=== PATIENT | female | born 1935 | race Caucasian/White ===

== ENCOUNTER → 2017-02-19 | Outpatient (CLI) | payer MEDICARE | END | disposition home or self-care (01) | LOC: GMAB 11:57 | PROVIDERS: ATTEND Family Medicine | DX: I10 Essential (primary) hypertension (principal) ==

== ENCOUNTER → 2017-07-04 | Outpatient (CLI) | payer MEDICARE | END | disposition home or self-care (01) | LOC: RESP 14:05 | PROVIDERS: ATTEND Family Medicine | DX: R06.02 Shortness of breath (principal) ==

== ENCOUNTER 2017-07-13 18:24 | Emergency (ER) | payer MEDICARE ==
--- NOTE | 2017-07-13 18:45 | ED.PDOC ---
History of Present Illness - General Chief Complaint: Lower Extremity Injury Stated Complaint: L hip injury Time Seen by Provider: 07/13/17 18:29 Source: patient, RN notes reviewed, Vital Signs reviewed Exam Limitations: no limitations - History of Present Illness Initial Comments: Patient presents to the ER via private vehicle with c/o left hip pain. She [place] and felt her bone move funny and become painful. No weakness, numbness or tingling. Pain is at lateral superior hip. Occurred: just prior to arrival Pain - Lower Extremity: moderate: Left Thigh/Hip Method of Injury: twisted Improving Factors: rest Worsening Factors: movement Allergies/Adverse Reactions: Allergies NO KNOWN ALLERGY Allergy (Verified 07/13/17 19:05) Home Medications: Ambulatory Orders Clopidogrel Bisulfate [Plavix] 75 mg PO LUCRETIA-OTH-DAY 07/13/17 Losartan Potassium 50 mg PO DAILY 07/13/17 Mirtazapine [Remeron] 15 mg PO BEDTIME 07/13/17 Review of Systems - Review of Systems Constitutional: States: no symptoms reported Respiratory: States: no symptoms reported Cardiology: States: no symptoms reported Musculoskeletal: States: see HPI, joint pain - left hip Skin: States: no symptoms reported Neurological: States: no symptoms reported. Denies: numbness, paresthesia, tingling, weakness All other Systems: No Change from Baseline Family Medical History - Family History Mother Family History: Unknown Physical Exam - Physical Exam General Appearance: Alert, Comfortable, No apparent distress, Well Developed, Well Groomed, Well Hydrated, Well Nourished Cardiovascular/Respiratory: regular rate, rhythm, no M/R/G, normal peripheral pulses, normal breath sounds, no respiratory distress Thigh/Hip: no evidence of injury, normal ROM, soft tissue tenderness - lateral, upper hip Leg: normal inspection, non-tender, no evidence of injury, normal ROM Ankle: non-tender, no evidence of injury, normal ROM, swelling Foot: normal inspection, non-tender, no evidence of injury, normal ROM Neuro/Tendon: normal sensation, normal motor functions, normal tendon functions , no evidence tendon injury Mental Status: alert, oriented x 3 Skin: normal color, warm/dry, other - numerous varicosities and spider veins on lower legs Progress - EKG/XRAY/CT XRAY: hip - Normal per Radiologist Departure - Departure Clinical Impression: Sprain of hip Qualifiers: Encounter type: initial encounter Laterality: left Qualified Code(s): S73.102A - Unspecified sprain of left hip, initial encounter Time of Disposition: 19:52 Disposition: Discharge to Home or Self Care Condition: Good Departure Forms: ED Discharge - Pt. Copy, Patient Portal Self Enrollment Instructions: Sprain Diet: resume usual diet Activity: increase activity as tolerated Referrals: Jm Carrizales MD [Primary Care Provider] - 1-2 Weeks Home Medications: Ambulatory Orders Clopidogrel Bisulfate [Plavix] 75 mg PO LUCRETIA-OTH-DAY 07/13/17 Losartan Potassium 50 mg PO DAILY 07/13/17 Mirtazapine [Remeron] 15 mg PO BEDTIME 07/13/17
[2017-07-13 19:09] VITALS: TEMP 98.4; O2SAT 98
--- NOTE | 2017-07-13 19:47 | RAD ---
EXAM DESCRIPTION: Hip,Left 2 Views CLINICAL HISTORY: Pop with pain while climbing down ladder COMPARISON: None FINDINGS: Two views of the left hip were submitted. There is no acute fracture or dislocation. Bone mineralization is within normal limits. There is no radiopaque foreign body material. Calcifications within the pelvis compatible with phleboliths. IMPRESSION: No acute abnormalities Electronically signed by: Marck Durant MD 07/13/2017 7:46 PM CDT
[2017-07-13 20:03] VITALS: BP 145/67
== END 2017-07-13 20:03 | disposition home or self-care (01) ==
LOC: ER 18:24
DX: S73.102A Unspecified sprain of left hip, initial encounter (principal); Z79.02 Long term (current) use of antithrombotics/antiplatelets; X58.XXXA Exposure to other specified factors, initial encounter; Y92.828 Other wilderness area as the place of occurrence of the external cause

== ENCOUNTER → 2017-07-25 | Outpatient (CLI) | payer MEDICARE ==
--- NOTE | 2017-07-26 05:44 | RAD ---
Procedure: XR PELVIS 1-2 VIEWS Exam Date: 07/25/2017 8:15 AM CDT Ordering Provider: ROMÁN AKINS Clinical Indication: PAIN IN LEFT HIP Comparison: None FINDINGS: There is no fracture or dislocation. Articular surface of each hip has a normal appearance. The sacroiliac joints have a normal appearance bilaterally. The pubic symphysis is normal. There are no lytic or sclerotic lesions. There are no suspicious calcifications. Impression: 1. Negative exam of the pelvis and each hip. Electronically signed by: Agustin Roy MD 07/26/2017 5:43 AM CDT
== END | disposition home or self-care (01) ==
LOC: RAD 08:15
PROVIDERS: ATTEND Orthopaedic Surgery
DX: M25.552 Pain in left hip (principal)

== ENCOUNTER → 2018-02-24 | Outpatient (CLI) | payer MEDICARE | LOC: GMAB 12:39 | PROVIDERS: ATTEND Family Medicine | DX: I10 Essential (primary) hypertension (principal) ==

== ENCOUNTER → 2019-06-25 | Outpatient (CLI) | payer MEDICARE ==
--- NOTE | 2019-06-25 09:30 | RAD ---
EXAM DESCRIPTION: Pelvis CLINICAL HISTORY: 83 years Female, M25.551 COMPARISON: July 25, 2017 FINDINGS: Single AP view the pelvis shows no pelvic fracture. The hip and sacroiliac joint spaces are well-maintained. Mild degenerative calcifications arise from the acetabular margins bilaterally. Mild degenerative changes at several levels in the lower lumbar spine partially visualized. Enthesopathic calcifications arise from the iliac bones and inferior pubic rami. IMPRESSION: Mild degenerative changes without acute pelvic abnormality. Electronically signed by: Bib Escamilla MD 06/25/2019 9:28 AM CDT
--- NOTE | 2019-06-25 09:31 | RAD ---
EXAM DESCRIPTION: Hip,Right 2 Views CLINICAL HISTORY: 83 years Female, M25.551 COMPARISON: None. FINDINGS: Two views of the right hip show no acute fracture or malalignment. Degenerative calcifications arise from the posterior margin of the right acetabulum without right hip joint space narrowing. The soft tissues are unremarkable. Degenerative changes in the lower lumbar spine partially visualized. IMPRESSION: Degenerative changes in the lumbar spine and mild degenerative changes in the right hip. Electronically signed by: Bib Escamilla MD 06/25/2019 9:30 AM CDT
== END ==
LOC: RAD 09:05
PROVIDERS: ATTEND Orthopaedic Surgery
DX: M16.11 Unilateral primary osteoarthritis, right hip (principal); M47.896 Other spondylosis, lumbar region

== ENCOUNTER → 2019-07-30 | Outpatient (CLI) | payer MEDICARE | LOC: GMAE 10:33 | PROVIDERS: ATTEND Family Medicine | DX: I10 Essential (primary) hypertension (principal) ==

== ENCOUNTER 2019-10-18 19:00 | Emergency (ER) | payer MEDICARE ==
[2019-10-18] MEDS ORDERED: AMOXICILLIN & POT CLAVULANATE 875 MG TAB PO ONE (19:09)
[2019-10-18] MEDS ORDERED: TETANUS,DIPHTHERIA,PERTUSSIS 1 EA SYG IM ONE (19:09)
--- NOTE | 2019-10-18 19:12 | ED.PDOC ---
History of Present Illness - General Time Seen by Provider: 10/18/19 19:09 Source: patient Exam Limitations: no limitations - History of Present Illness Initial Comments: the patient's 83-year-old female presenting to the emergency room after having sustained a 1 cm scratch to her left forearm by squirrel. This happened simply an accident. The patient is not up-to-date on her tetanus and was told by the nursing hotline to come to the emergency room to get a tetanus shot. This happened one half hour ago. No evidence of significant bleeding. No significant skin. The wound is clean with hydrogen peroxide. No other injuries. Timing/Duration: momentarily Severity: mild Improving Factors: nothing Worsening Factors: nothing Associated Symptoms: denies symptoms Allergies/Adverse Reactions: Allergies NO KNOWN ALLERGY Allergy (Verified 07/13/17 19:05) Home Medications: Ambulatory Orders Clopidogrel Bisulfate [Plavix] 75 mg PO LUCRETIA-OTH-DAY 07/13/17 Losartan Potassium 50 mg PO DAILY 07/13/17 Mirtazapine [Remeron] 15 mg PO BEDTIME 07/13/17 Amoxicillin & Pot Clavulanate [Augmentin Tab] 875 mg PO DAILY #3 tab 10/18/19 Review of Systems - Review of Systems Constitutional: States: no symptoms reported EENTM: States: no symptoms reported Respiratory: States: no symptoms reported Cardiology: States: no symptoms reported Gastrointestinal/Abdominal: States: no symptoms reported Genitourinary: States: no symptoms reported Musculoskeletal: States: no symptoms reported Skin: States: see HPI Neurological: States: no symptoms reported Endocrine: States: no symptoms reported Hematologic/Lymphatic: States: no symptoms reported All other Systems: No Change from Baseline Past Medical History (General) - Patient Medical History Hx Stroke: Yes - TIA 1998 Hx Cardiac Disorders: Yes Hx Congestive Heart Failure: No Hx Hypertension: Yes Hx Diabetes: No Hx MRSA: No - Vaccination History Hx Influenza Vaccination: Yes - 2016 Hx Pneumococcal Vaccination: Yes - Social History Hx Tobacco Use: No Family Medical History - Family History Mother Family History: Unknown Living Status: Unknown Physical Exam - Physical Exam General Appearance: Alert, Comfortable, No apparent distress Eye Exam: bilateral normal Ears, Nose, Throat: hearing grossly normal Respiratory: no respiratory distress, no accessory muscle use Cardiovascular/Chest: normal peripheral pulses Peripheral Pulses: radial,right: 2+, radial,left: 2+ Rectal Exam: deferred Extremity: normal capillary refill, other - normal range of motion of the upper extremities. Neurologic: spinning doffer II-XII nml as tested, alert, normal mood/affect, oriented x 3 Skin Exam: normal color - mild bruising around scratch site. Progress - Progress Progress: 10/18/19 19:11 the patient's 83-year-old female presenting to the emergency room secondary to a 1 cm scratch to the left forearm. It is essentially hemostatic at this time but was cleaned here. She is receiving a tetanus shot as she is past due. She'll be placed on Augmentin 1 tablet daily for the next 3 days for infection prophylaxis. ER warnings were given. Keep routine follow-up with primary care doctor. marin mcneal [phone] Departure - Departure Clinical Impression: Animal scratch Disposition: Discharge to Home or Self Care Condition: Fair Instructions: Wound Care (DC) Diet: regular diet Activity: increase activity as tolerated Prescriptions: Amoxicillin & Pot Clavulanate [Augmentin Tab] 875 mg PO DAILY #3 tab Home Medications: Ambulatory Orders Clopidogrel Bisulfate [Plavix] 75 mg PO LUCRETIA-OTH-DAY 07/13/17 Losartan Potassium 50 mg PO DAILY 07/13/17 Mirtazapine [Remeron] 15 mg PO BEDTIME 07/13/17 Amoxicillin & Pot Clavulanate [Augmentin Tab] 875 mg PO DAILY #3 tab 10/18/19 Additional Instructions: the patient's 83-year-old female presenting to the emergency room secondary to a 1 cm scratch to the left forearm. It is essentially hemostatic at this time but was cleaned here. She is receiving a tetanus shot as she is past due. She'll be placed on Augmentin 1 tablet daily for the next 3 days for infection prophylaxis. ER warnings were given. Keep routine follow-up with primary care doctor.
[2019-10-18 19:18] VITALS: TEMP 98.2
[2019-10-18 19:34] VITALS: BP 157/79; O2SAT 96
== END 2019-10-18 19:34 | disposition home or self-care (01) ==
LOC: ER 19:00
DX: S50.812A Abrasion of left forearm, initial encounter (principal); I51.9 Heart disease, unspecified; I10 Essential (primary) hypertension; W53.29XA Other contact with squirrel, initial encounter; Z86.73 Personal history of transient ischemic attack (TIA), and cerebral infarction without residual deficits; Z79.899 Other long term (current) drug therapy; Y92.9 Unspecified place or not applicable

== ENCOUNTER 2019-10-28 15:38 | Emergency (ER) | payer MEDICARE ==
[2019-10-28] MEDS: ASPIRIN TABLET 325 MG TAB PO ONE (16:12)
[2019-10-28] MEDS: SODIUM CHLORIDE 0.9% (FLUSH) 10 ML SYG IV PRN (16:13)
--- NOTE | 2019-10-28 16:14 | RAD ---
EXAM DESCRIPTION: Chest,1 View CLINICAL HISTORY: 83 years Female, left facial numbness COMPARISON: April 17, 2014 FINDINGS: One view/radiograph Heart size and pulmonary vessels are within normal limits. There is no pneumothorax or pleural effusion. The lungs are clear bilaterally. The soft tissues are unremarkable. No acute osseous findings. Sequela of prior granulomatous disease identified. Atherosclerotic plaque in the thoracic aorta. IMPRESSION: No acute cardiopulmonary abnormality. Electronically signed by: Gabriel Luna MD 10/28/2019 4:13 PM [facility]
--- NOTE | 2019-10-28 16:17 | CT ---
EXAM DESCRIPTION: Head CLINICAL HISTORY: left facial numbness and weakness COMPARISON: Previous CT of the head April 17, 2014 TECHNIQUE: Noncontrast head CT was performed with routine protocol. FINDINGS: Normal posey-white matter differentiation. Ventricles and sulci are prominent consistent with age-related cerebral volume loss. Low density white matter consistent with chronic microvascular ischemic disease. No high density hemorrhage, focal edema or shift of the midline. No sulcal effacement. Normal orbital contents. Basilar cisterns appear clear. Intact calvarium with no fracture or lytic lesion. Normal aeration of tympanic cavities and mastoid air cells. No fluid levels in the paranasal sinuses. Skull base appears intact. Symmetrical internal auditory canals. Coronal and sagittal reformatted images confirm the findings. Mild progression of white matter disease since previous study with no other significant change. IMPRESSION: No acute intracranial pathologic process. This exam was performed according to our departmental dose-optimization program, which includes automated exposure control, adjustment of the mA and/or kV according to patient size and/or use of iterative reconstruction technique. Total DLP equals 859.97 mGycm. Electronically signed by: Joseph Dowell MD 10/28/2019 4:15 PM [facility]
--- NOTE | 2019-10-28 16:36 | ED.PDOC ---
History of Present Illness - General Chief Complaint: Neuro Symptoms/Deficits Stated Complaint: left sided facial numbness Time Seen by Provider: 10/28/19 15:44 Source: patient, RN notes reviewed, Vital Signs reviewed, EMS notes reviewed, family - sister Exam Limitations: no limitations - History of Present Illness Initial Comments: patient is an 83-year-old white female presents with complaints of left facial numbness and slight facial droop. Patient denies any numbness or weakness on her arms or legs. This came on suddenly. Nothing seems to make it better or worse. Patient denies any headache, blurry vision, dizziness, chest pain, shortness of breath, nausea, vomiting or diarrhea. Patient had a right-sided stroke a number of years ago. Timing/Duration: 1/2 hour Severity: mild Improving Factors: nothing Worsening Factors: nothing Associated Symptoms: paresthesia Allergies/Adverse Reactions: Allergies NO KNOWN ALLERGY Allergy (Verified 07/13/17 19:05) Home Medications: Ambulatory Orders Losartan Potassium 50 mg PO DAILY 07/13/17 B-Complex W/Biotin & Folic Aci [Vitamin B50 Complex Tr] 1 tab PO DAILY 10/28/19 Clopidogrel Bisulfate [Plavix] 75 mg PO LUCRETIA-OTH-DAY 10/28/19 Co Q-10 10/28/19 Fish Oil 10/28/19 Loratadine 10 mg PO PRN 10/28/19 Magnesium 10/28/19 Turmeric 10/28/19 Vitamin C 10/28/19 Vitamin D3 10/28/19 Review of Systems - Review of Systems Constitutional: States: no symptoms reported, see HPI EENTM: States: see HPI, other - left facial numbness Respiratory: States: no symptoms reported Cardiology: States: no symptoms reported Gastrointestinal/Abdominal: States: no symptoms reported Genitourinary: States: no symptoms reported Musculoskeletal: States: no symptoms reported Skin: States: no symptoms reported Neurological: States: see HPI, numbness, paresthesia, tingling Endocrine: States: no symptoms reported Hematologic/Lymphatic: States: no symptoms reported All other Systems: Reviewed and Negative Past Medical History (General) - Patient Medical History Hx Seizures: No Hx Stroke: Yes - TIA 1998 Hx of COPD: No Hx Cardiac Disorders: No Hx Congestive Heart Failure: No Hx Pacemaker: No Hx Hypertension: Yes Hx Diabetes: No Hx Cancer: Yes - tongue Hx MRSA: No Surgical History: appendectomy, Hysterectomy - Vaccination History Hx Tetanus, Diphtheria Vaccination: No Hx Influenza Vaccination: Yes - 2019 Hx Pneumococcal Vaccination: Yes - 2019 - Social History Hx Tobacco Use: No Family Medical History - Family History Mother Family History: Unknown Living Status: Unknown Physical Exam - Physical Exam General Appearance: Alert, Anxious, Well Developed, Well Groomed, Well Hydrated, Well Nourished Eye Exam: bilateral normal ENT Exam: hearing grossly normal, pharynx normal, other - patient with numbness to the left face, tongue deviates slightly to the left on extrusion. Has some left facial droop. Neck: non-tender, full range of motion, supple, normal inspection, trachea midline Respiratory: chest non-tender, lungs clear, normal breath sounds, no respiratory distress, no accessory muscle use Cardiovascular/Chest: normal peripheral pulses, regular rate, rhythm, no edema, no gallop, no JVD, no murmur Peripheral Pulses: radial,right: 2+, radial,left: 2+ Gastrointestinal/Abdominal: normal bowel sounds, non tender, soft, no organomegaly, no pulsatile mass Back Exam: normal inspection, no CVA tenderness, no vertebral tenderness Extremities Exam: non-tender, normal range of motion, no evidence of injury Mental Status: alert, oriented x 3 rn assessment Exam: normal hearing, normal speech, PERRL Coordination/Gait: normal finger to nose, normal gait, negative Romberg's sign Motor/Sensory: no motor deficit, no pronator drift, negative Babinski's sign, sensory deficit - left face Skin Exam: normal color, warm/dry Progress - Progress Progress: Differential diagnosis: Wu's palsy, TIA, CVA, among others. 10/28/19 17:48 Patient's labs are relatively unremarkable as is her CT and EKG. Plan on transferred to [facility] for further evaluation for acute stroke. I discussed splenic care with the patient and her son and sister and they voice understanding and agreement. Austen Gaines M.D. #[id number] - Results/Orders Results/Orders: 10/28/19 15:44 Telemetry .ONCE Sodium Chloride 0.9% (Flush) [Saline Flush Syringe] 10 ml IV PRN PRN 10/28/19 15:45 EKG STAT Laboratory Results - last 24 hr 10/28/19 10/28/19 10/28/19 16:09 16:09 16:09 WBC 9.8 RBC 4.57 Hgb 14.0 Hct 41.6 MCV 91.1 MCH 30.6 MCHC 33.5 RDW 13.8 Plt Count 257 MPV 8.4 Absolute Neuts (auto) 7.30 H Absolute Lymphs (auto) 1.60 Absolute Monos (auto) 0.60 Absolute Eos (auto) 0.20 Absolute Basos (auto) 0.10 Neutrophils % 75.2 Lymphocytes % 16.4 L Monocytes % 6.0 Eosinophils % 1.7 Basophils % 0.7 PT 9.7 INR 0.97 PTT (SP) 25.2 Sodium 139 Potassium 4.0 Chloride 104 Carbon Dioxide 28 Anion Gap 11.0 L BUN 14 Creatinine 0.80 BUN/Creatinine Ratio 17.5 POC Glucose Random Glucose 114 H Serum Osmolality 278.9 Calcium 9.6 Total Bilirubin 0.4 AST 29 ALT 19 Alkaline Phosphatase 62 Creatine Kinase 83 CK-MB (CK-2) 2.6 CK-MB (CK-2) % Not Reportable Troponin I < 0.02 Serum Total Protein 7.6 Albumin 4.0 Globulin 3.6 H Albumin/Globulin Ratio 1.1 10/28/19 16:09 WBC RBC Hgb Hct MCV MCH MCHC RDW Plt Count MPV Absolute Neuts (auto) Absolute Lymphs (auto) Absolute Monos (auto) Absolute Eos (auto) Absolute Basos (auto) Neutrophils % Lymphocytes % Monocytes % Eosinophils % Basophils % PT INR PTT (SP) Sodium Potassium Chloride Carbon Dioxide Anion Gap BUN Creatinine BUN/Creatinine Ratio POC Glucose 98 Random Glucose Serum Osmolality Calcium Total Bilirubin AST ALT Alkaline Phosphatase Creatine Kinase CK-MB (CK-2) CK-MB (CK-2) % Troponin I Serum Total Protein Albumin Globulin Albumin/Globulin Ratio EKG performed 28 October 2019 at 1545 hrs.: Normal sinus rhythm at 71 bpm, normal axis deviation, possible left atrial enlargement, borderline EKG, no EKG for comparison. EXAM DESCRIPTION: Head CLINICAL HISTORY: left facial numbness and weakness COMPARISON: Previous CT of the head April 17, 2014 TECHNIQUE: Noncontrast head CT was performed with routine protocol. FINDINGS: Normal posey-white matter differentiation. Ventricles and sulci are prominent consistent with age-related cerebral volume loss. Low density white matter consistent with chronic microvascular ischemic disease. No high density hemorrhage, focal edema or shift of the midline. No sulcal effacement. Normal orbital contents. Basilar cisterns appear clear. Intact calvarium with no fracture or lytic lesion. Normal aeration of tympanic cavities and mastoid air cells. No fluid levels in the paranasal sinuses. Skull base appears intact. Symmetrical internal auditory canals. Coronal and sagittal reformatted images confirm the findings. Mild progression of white matter disease since previous study with no other significant change. IMPRESSION: No acute intracranial pathologic process. This exam was performed according to our departmental dose-optimization program, which includes automated exposure control, adjustment of the mA and/or kV according to patient size and/or use of iterative reconstruction technique. Total DLP equals 859.97 mGycm. Electronically signed by: Joseph Dowell MD 10/28/2019 4:15 EXAM DESCRIPTION: Chest,1 View CLINICAL HISTORY: 83 years Female, left facial numbness COMPARISON: April 17, 2014 FINDINGS: One view/radiograph Heart size and pulmonary vessels are within normal limits. There is no pneumothorax or pleural effusion. The lungs are fay r bilaterally. The soft tissues are unremarkable. No acute osseous findings. Sequela of prior granulomatous disease identified. Atherosclerotic plaque in the thoracic aorta. IMPRESSION: No acute cardiopulmonary abnormality. Electronically signed by: Gabriel Luna MD 10/28/2019 4:13 PM Departure - Departure Clinical Impression: CVA (cerebral vascular accident) Qualifiers: CVA mechanism: unspecified Qualified Code(s): I63.9 - Cerebral infarction, unspecified Time of Disposition: 17:58 Disposition: Transfer to Hospital Condition: Fair Departure Forms: ED Discharge - Pt. Copy, Patient Portal Self Enrollment Referrals: EB CHARLES MD [Primary Care Provider] - 1-2 Weeks Home Medications: Ambulatory Orders Losartan Potassium 50 mg PO DAILY 07/13/17 B-Complex W/Biotin & Folic Aci [Vitamin B50 Complex Tr] 1 tab PO DAILY 10/28/19 Clopidogrel Bisulfate [Plavix] 75 mg PO LUCRETIA-OTH-DAY 10/28/19 Co Q-10 10/28/19 Fish Oil 10/28/19 Loratadine 10 mg PO PRN 10/28/19 Magnesium 10/28/19 Turmeric 10/28/19 Vitamin C 10/28/19 Vitamin D3 10/28/19 Transfer to Outside Facility - Transfer Information Decision to Transfer Date: 12/18/19 Decision to Transfer Time: 17:30 Reason for Transfer: required specialist not available Accepting Facility: [facility]
[2019-10-28 18:04] VITALS: BP 177/79; TEMP 97.6; O2SAT 98
== END 2019-10-28 18:00 | disposition short-term general hospital (02) ==
LOC: ER 15:38
DX: I63.9 Cerebral infarction, unspecified (principal); R29.810 Facial weakness; R20.2 Paresthesia of skin; I10 Essential (primary) hypertension; Z86.73 Personal history of transient ischemic attack (TIA), and cerebral infarction without residual deficits; Z79.899 Other long term (current) drug therapy; Z85.818 Personal history of malignant neoplasm of other sites of lip, oral cavity, and pharynx

== ENCOUNTER → 2019-11-19 | Outpatient (CLI) | payer MEDICARE | LOC: GMAJS 16:59 | PROVIDERS: ATTEND Physician Assistant | DX: I10 Essential (primary) hypertension (principal) ==

== ENCOUNTER → 2019-12-05 | Outpatient (CLI) | payer MEDICARE | LOC: LAB.O 15:24 | PROVIDERS: ATTEND Physician Assistant | DX: R10.84 Generalized abdominal pain (principal) ==

== ENCOUNTER → 2019-12-08 | Outpatient (CLI) | payer MEDICARE ==
--- NOTE | 2019-12-09 13:18 | US ---
EXAM DESCRIPTION: Abdomen,Complete: Ultrasound. CLINICAL HISTORY: 84 years FemaleGENERALIZED ABDOMINAL PAIN COMPARISON: None Available. TECHNIQUE: Transabdominal scanning: grayscale and Doppler modes. FINDINGS: Gallbladder: Normal size. 5.2 mm echogenic object on the free wall of the gallbladder near the neck with no acoustic shadowing or mobility with patient movement. No echogenic stones or sludge. Gallbladder wall thickness 1.7 mm with no fluid. Nontender during transducer pressure. Common bile duct: 3.1 mm. Normal caliber. Liver: Heterogeneous with minimal increase in echogenicity. Small calcified nodules less than 5 mm in diameter. Physiologic vascularity and normal caliber of the ducts. Smooth capsule with no ascites. Long axis of the right lobe 12.2 cm. Pancreas: Normal echogenicity, duct not seen.. Abdominal aorta: Normal caliber from the proximal segment to the distal bifurcation. IVC: visualized; normal caliber. Spleen normal echogenicity predominantly with small focal calcifications less than 3 mm diameter.; long axis measurement is 7.5 cm. Right kidney: 9.9 cm long axis with cortical thickness 10 mm and physiologic echogenicity. No echogenic stones or hydronephrosis. Left kidney: 10.3 cm long axis. Cortical thickness 11 mm with physiologic echogenicity. Large anechoic structure in the central kidney consistent with a cyst measuring 3.8 x 3.6 cm, not vascular. No hydronephrosis or echogenic stones. IMPRESSION: 1. Minimal steatosis of the liver with normal ducts and vascularity. Smooth capsule with no ascites, small calcified granulomas, normal size of the liver. Pancreas is unremarkable. Normal size of the spleen with calcified granulomas. 2. Gallbladder with a polyp near the neck. No definite stones. No wall thickness or fluid. Nontender with transducer pressure. Normal caliber of the common bile duct. 3. 3.8 cm cyst in the left kidney with no hydronephrosis or stones. Physiologic cortical echogenicity and thickness bilaterally. 4. Normal caliber of the IVC and the abdominal aorta. Electronically signed by: Jay Jeter MD 12/09/2019 1:17 PM [facility]
== END ==
LOC: US 09:46
PROVIDERS: ATTEND Family Medicine
DX: K76.0 Fatty (change of) liver, not elsewhere classified (principal); K76.89 Other specified diseases of liver; K82.4 Cholesterolosis of gallbladder; N28.1 Cyst of kidney, acquired; N28.9 Disorder of kidney and ureter, unspecified

== ENCOUNTER → 2019-12-10 | Outpatient (CLI) | payer MEDICARE ==
--- NOTE | 2019-12-11 07:13 | CT ---
EXAM DESCRIPTION: Abdoment/Pelvis w/o Contrast CLINICAL HISTORY: 84 years Female, EPIGASTRIC ABDOMINAL TENDERNESS TECHNIQUE: This exam was performed according to our departmental dose-optimization program, which includes automated exposure control, adjustment of the mA and/or kV according to patient size and/or use of iterative reconstruction technique. COMPARISON: December 08, 2019 FINDINGS: Evaluation limited by lack of intravenous contrast. Bibasilar volume loss. No focal consolidation or suspicious pulmonary nodule. Scattered calcified granulomas in the lung bases. Calcified granulomas are also present in the liver and spleen. The contours of the liver, spleen, pancreas and adrenal glands are unremarkable. Mildly prominent gallbladder. No pericholecystic fluid. Left renal cyst. Normal renal contours. No hydronephrosis. 3 mm inferior right renal calculus. No obstructing ureteral stone. Unremarkable bladder. Right adnexal cystic lesion measuring 1.8 cm series 2 image 127. Scattered colonic diverticula without focal inflammatory change. No evidence of bowel obstruction. No findings to suggest appendicitis. No adenopathy. No focal fluid collection. No free air. Normal caliber abdominal aorta. Mild diffuse atherosclerotic disease. Small fat-containing umbilical hernia. No acute or suspicious osseous abnormality. Scattered degenerative changes present. IMPRESSION: 1. No evidence of acute process in the abdomen or pelvis. 2. Right adnexal cystic lesion measuring 1.8 cm. Recommend pelvic ultrasound when clinically appropriate. Electronically signed by: Gabriel Luna MD 12/11/2019 7:12 AM [employer]INTENA[employer]CE IN[employer]
== END ==
LOC: CT 11:10
PROVIDERS: ATTEND Family Medicine
DX: R10.816 Epigastric abdominal tenderness (principal); N83.9 Noninflammatory disorder of ovary, fallopian tube and broad ligament, unspecified

== ENCOUNTER 2019-12-18 06:00 | Day surgery (SDC) | payer MEDICARE ==
[2019-12-18] MEDS ORDERED: PROPOFOL 200 MG/20 ML VIAL IV ONE (07:00)
[2019-12-18] MEDS ORDERED: raNITIdine HCL INJ 25 MG/ML VIAL ONE (07:00)
[2019-12-18] MEDS ORDERED: GLYCOPYRROLATE 0.2 MG/ML VIAL ONE (07:00)
[2019-12-18] MEDS ORDERED: ePHEDrine SULF 50 MG/ML ONE (07:00)
[2019-12-18] MEDS ORDERED: LIDOCAINE 1% 10 ML VIAL INJ ONE (07:00)
[2019-12-18] MEDS ORDERED: SODIUM CHLORIDE 0.9% 50 ML VIAL ONE (07:00)
[2019-12-18] MEDS ORDERED: BUPIVACAINE 0.5% W/EPI 30 ML VIAL INJ ONE ×2 (09:18→11:54)
[2019-12-18] MEDS: LACTATED RINGERS 1,000 ML ONE ×2 (11:25→12:51)
[2019-12-18] MEDS ORDERED: ROCURONIUM BROMIDE 10 MG/ML VIAL ONE (11:44)
[2019-12-18] MEDS ORDERED: fentaNYL CITRATE INJ 50 MCG/ML AMP ONE (11:44)
[2019-12-18] MEDS ORDERED: SUGAMMADEX SODIUM 200 MG/2 ML VIAL IV ONE (12:27)
[2019-12-18] MEDS ORDERED: HYDROmorphone HCL INJ 2 MG/ML VIAL ONE (12:27)
--- NOTE | 2019-12-18 13:39 | OP ---
DATE OF PROCEDURE: 12/18/19 PREOPERATIVE DIAGNOSIS: 1. Gallbladder polyp/cholelithiasis. POSTOPERATIVE DIAGNOSIS: 1. Gallbladder polyp/cholelithiasis. PROCEDURE: 1. Laparoscopic cholecystectomy. SURGEON: Benjamín Kline MD. ANESTHESIA: General and local. FINDINGS: There was some scarring to the anterior gallbladder, easily taken down. There was evidence of mild chronic cholecystitis. The anatomy was clearly visualized through the triangle of Calot. COMPLICATIONS: None. ESTIMATED BLOOD LOSS: Minimal. SPECIMEN: Gallbladder. CONDITION: Stable. PLAN: Discharge. INDICATION: As stated. PROCEDURE: General anesthesia was induced. The patient was prepped and draped in sterile fashion. Marcaine 0.5% with epinephrine was used at all incision sites. While maintaining upward traction, a leonel was made near the base of the umbilicus. Veress needle was introduced. There was free flow of fluid into the peritoneal cavity which was insufflated to an appropriate level with CO2 gas. The 5 mm trocar was placed followed by the camera. There was no evidence of bleeding or bowel injury. The patient was positioned and subxiphoid and lateral ports were placed under direct visualization. The gallbladder fundus was easily identified, grasped and retracted superiorly and laterally. Anterior adhesions were taken down. The infundibulum was grasped. The infundibular structures were dissected free. The duct and artery were clearly visualized through the triangle of Calot. Three clips were placed on the duct. The duct was ligated. The artery was triply ligated. The gallbladder was then dissected off the fossa in total and removed. The area was irrigated until aspirate was clear. Final irrigation revealed no evidence of bleeding or bile leakage. Under low pressure, the area remained hemostatic. The subxiphoid fascia was then closed with 0 Vicryl using the suture passer. It was airtight and non-bleeding. The remaining trocars were removed. There was no bleeding from the trocar sites. The abdomen was desufflated. The wounds were closed with Monocryl. Dressings were applied. The patient was awakened and taken to Recovery to be discharged. #[id number] [facility]
[2019-12-18 15:10] VITALS: BP 176/75; TEMP 97.7; O2SAT 95
== END 2019-12-18 15:15 | disposition home or self-care (01) ==
LOC: AMB 06:00
PROVIDERS: ATTEND Surgery
DX: K81.1 Chronic cholecystitis (principal); I10 Essential (primary) hypertension; F41.9 Anxiety disorder, unspecified; E78.00 Pure hypercholesterolemia, unspecified; K21.9 Gastro-esophageal reflux disease without esophagitis; G51.0 Bell's palsy; Z86.73 Personal history of transient ischemic attack (TIA), and cerebral infarction without residual deficits; Z88.8 Allergy status to other drugs, medicaments and biological substances; Z79.899 Other long term (current) drug therapy
CPT/HCPCS: 00790; 47562; 88304; A4216; J1170; J2780; J3010; J3490; J7120

== ENCOUNTER → 2019-12-25 | Outpatient (CLI) | payer MEDICARE ==
--- NOTE | 2019-12-28 12:17 | US ---
EXAM DESCRIPTION: Pelvic,Non-OB: Ultrasound. CLINICAL HISTORY: 84 [address] COMPARISON: Abdominal pelvic CT scan December 10. Abdominal ultrasound December 08. TECHNIQUE: Transcutaneous scanning through the urine filled bladder. Endovaginal scanning. Olmos-scale and Doppler modes. FINDINGS: Uterus 6.4 x 2.4 x 3.3 cm. 37.5 mL. Endometrium 4 mm.. Myometrium heterogeneous. Uterus not retroverted. Cervix unremarkable on limited images.. Cul-de-sac: No fluid. Right ovary 2.0 x 1.9 x 1.8 cm. 3.5 mL. Normal waveform and color Doppler vascularity. 1.8 x 1.7 cm simple follicle, but no cysts. No adnexal mass or free fluid. Left ovary not visualized. No adnexal mass or free fluid. IMPRESSION: 1.8 cm simple follicle in the right ovary but no cysts. Normal size and vascularity of the ovary. Unable to visualize left ovary. Normal position and size of the uterus. No endometrial thickening or fluid. No fluid in the cul-de-sac. Electronically signed by: Jay Jeter MD 12/28/2019 12:15 PM [facility]
== END ==
LOC: US 13:34
PROVIDERS: ATTEND Family Medicine
DX: R93.41 Abnormal radiologic findings on diagnostic imaging of renal pelvis, ureter, or bladder (principal)

== ENCOUNTER 2020-03-14 05:35 | Day surgery (SDC) | payer MEDICARE ==
[2020-03-14] MEDS ORDERED: MOXIFLOXACIN HCL (OPHTH) 1 DROP DROPS ONE (05:49)
[2020-03-14] MEDS ORDERED: PROPARACAINE 0.5% OPHTH SOL 15 ML BTTL ONE (05:49)
[2020-03-14] MEDS ORDERED: TROP1%/CYCLOPEN 1%/PHENYL 2.5% DROPS ONE ×2 (05:49→09:35)
[2020-03-14] MEDS ORDERED: MIDAZOLAM INJ 2 MG/2 ML VIAL ONE (09:51)
[2020-03-14] MEDS ORDERED: LIDOCAINE 1% 2 ML VIAL INJ ONE (09:56)
[2020-03-14] MEDS ORDERED: TOBRAMYCIN SULF 0.3 % OPHT SOL 1 DROP RIGHT_EYE ONE (09:56)
[2020-03-14] MEDS ORDERED: BRIMONIDINE 0.2% OPHTH DROPS RIGHT_EYE ONE (09:56)
[2020-03-14] MEDS ORDERED: PROPARACAINE 0.5% OPHTH SOL 15 ML BTTL RIGHT_EYE ONE (09:56)
[2020-03-14] MEDS ORDERED: MOXIFLOXACIN HCL (OPHTH) 1 DROP DROPS RIGHT_EYE ONE (09:56)
[2020-03-14] MEDS ORDERED: DEXAMETHASONE 0.1% OPHTH SOL 1 DROP RIGHT_EYE ONE (09:56)
== END 2020-03-14 11:10 | disposition home or self-care (01) ==
LOC: AMB 05:35
PROVIDERS: ATTEND Ophthalmology
DX: H25.11 Age-related nuclear cataract, right eye (principal); K21.9 Gastro-esophageal reflux disease without esophagitis; I10 Essential (primary) hypertension; Z79.02 Long term (current) use of antithrombotics/antiplatelets; Z79.899 Other long term (current) drug therapy
CPT/HCPCS: 00142; 66984; J2250

== ENCOUNTER 2020-03-28 05:34 | Day surgery (SDC) | payer MEDICARE ==
[2020-03-28] MEDS ORDERED: MOXIFLOXACIN HCL (OPHTH) 1 DROP DROPS ONE (05:52)
[2020-03-28] MEDS ORDERED: TROP1%/CYCLOPEN 1%/PHENYL 2.5% DROPS ONE (05:53)
[2020-03-28] MEDS ORDERED: PROPARACAINE 0.5% OPHTH SOL 15 ML BTTL ONE (05:53)
[2020-03-28] MEDS ORDERED: MIDAZOLAM INJ 2 MG/2 ML VIAL ONE (08:40)
[2020-03-28] MEDS ORDERED: PROPARACAINE 0.5% OPHTH SOL 15 ML BTTL LEFT_EYE ONE ×2 (08:43→09:10)
[2020-03-28] MEDS ORDERED: MOXIFLOXACIN HCL (OPHTH) 1 DROP DROPS LEFT_EYE ONE ×2 (08:44→09:10)
[2020-03-28] MEDS ORDERED: DEXAMETHASONE 0.1% OPHTH SOL 1 DROP LEFT_EYE ONE ×2 (08:44→09:10)
[2020-03-28] MEDS ORDERED: LIDOCAINE 1% 2 ML VIAL INJ ONE ×2 (08:44→09:10)
[2020-03-28] MEDS ORDERED: TOBRAMYCIN SULF 0.3 % OPHT SOL 1 DROP LEFT_EYE ONE ×2 (08:45→09:10)
[2020-03-28] MEDS ORDERED: BRIMONIDINE 0.2% OPHTH DROPS LEFT_EYE ONE ×2 (08:45→09:10)
== END 2020-03-28 10:10 | disposition home or self-care (01) ==
LOC: AMB 05:34
PROVIDERS: ATTEND Ophthalmology
DX: H25.12 Age-related nuclear cataract, left eye (principal); Z79.899 Other long term (current) drug therapy; Z79.02 Long term (current) use of antithrombotics/antiplatelets
CPT/HCPCS: 00142; 66984; J2250

== ENCOUNTER → 2020-09-20 | Outpatient (CLI) | payer MEDICARE | LOC: GMAE 10:45 | PROVIDERS: ATTEND Family Medicine | DX: I10 Essential (primary) hypertension (principal) ==